=== PATIENT | female | born 1955 | race Caucasian/White ===

== ENCOUNTER 2016-10-30 13:00 | Outpatient (RCR) | payer OTHER ==
[2016-10-22 09:34] VITALS: BMI 28.3
--- NOTE | 2016-10-29 14:17 | RS.OPPTDN ---
Subjective Date of Note: 10/28/16 Visit #: 9 Date of Evaluation: 09/25/16 Payer Source: MEDICARE Treatment Diagnosis: Gait imbalance Current Subjective/complaints:: Patient says she is feeling much better regarding BP med change. She says she is ready to continue with strengthening. Pain Assessment - Pain Description Pain Location: lower back Interventions - Exercise/Activities/Manual Therapy Exercises/Activities: Continued with progressing general LE and trunk exercises : QS, SAQ 2 1/2#, ball squeezes, isometric hip flexion/abd, ham curls/DF, isometric trunk rotation, bridging (2x10),alternate LE lift with 2 1/2# each leg and 3# wand, Green tband for trunk rotation, all 2/10. SLR 2/10. Standing : shoulder shrugs, scap adduction x 10. 3# wand for bilateral shoulder flexion in sitting x 10. Scap retraction green tband x 10. Began treadmill x 5 mins @ 1.0-1.3 mph Total minutes of Exercise: 43 Manual Therapy: NA - Charges Total Direct Minutes: 43 Total Treatment Time: 43 Procedures billed for this date of service:: ex3 Assessment: Patient continues to progress well with increased weights, trunk stability, and treadmill marjorie. No LOB or unsteadiness observed today. Patient Education: Education of diagnosis, Body/Joint mechanics, Home Exercise Program, Home Safety, Activity Modification, Education of Plan of Care Patient demonstrates compliance with HEP?: Yes Short Term Goals Goal #1: Trunk strength 4+/5. Goal to be met by: 10/10/16 Progress towards Goal:: Progressing Goal #2: Bilateral hip strength generally 4/5. Goal to be met by: 10/10/16 Progress towards Goal:: Progressing Goal #3: Patient to demonstrate minimal posterior displace of COG on Balance System. Goal to be met by: 10/10/16 Progress towards Goal:: Progressing Goal #4: Patient to amb. with consistent foot clearance and no deviation from path. Goal to be met by: 10/10/16 Progress towards Goal:: Progressing Fpc Goals Goal #1: Score on Tinetti Assessment to 28/28. Goal to be met by: 11/05/16 Goal #2: Pt to amb. community distances with good safety and min. gait deviation. Goal to be met by: 11/05/16 Progress towards goal: Progressing Goal #3: Pt knows HEP and to continue to maintain functional level after discharge. Goal to be met by: 11/05/16 Goal #4: Patient to report no falls with home or community ambulation. Goal to be met by: 11/05/16 Plan PLAN OF CARE EXPIRES ON:: 11/05/16 ORDER # VISITS AND/OR THROUGH DATE: 11/05/16 PLAN: Progress Exercises
--- NOTE | 2016-11-04 15:52 | RS.OPPTDN ---
Subjective Date of Note: 10/30/16 Visit #: 10 Date of Evaluation: 09/25/16 Payer Source: MEDICARE Treatment Diagnosis: Gait imbalance Current Subjective/complaints:: Patient expressed she has progressed well with strength and ambulation. She has been performing HEP routinely and feels she is ready to perform more strengthening at home and possibly join a local gym. Pain Assessment - Pain Description Pain Location: none mentioned Interventions - Exercise/Activities/Manual Therapy Exercises/Activities: Continued with progressing general LE and trunk exercises : QS, SAQ 3#, ball squeezes, isometric hip flexion/abd, ham curls/DF, isometric trunk rotation, bridging (2x10),alternate LE lift with 2 1/2# each leg and 3# wand, Green tband for trunk rotation, all 2/10. SLR 2/10. Standing : shoulder shrugs, scap adduction x 10. 3# wand for bilateral shoulder flexion in sitting x 10. Scap retraction green tband x 10. Continued with treadmill x 5 mins @ 1.0-1.3 mph. Step ups and side stepping, marching and minisquats. Tinetti reassessment conducted. Progressed HeP and provided copies. Total minutes of Exercise: 40 Manual Therapy: NA - Charges Total Direct Minutes: 40 Total Treatment Time: 40 Procedures billed for this date of service:: ex3 Assessment: Patient shows improvement with Tinetti from to . She expresses satisfaction with PT results and commits to performing HEP daily and joining local gym to begin walking routine/stationary bike. She has marjorie all progressive exercises and standing activities while maintaining balance. Patient Education: Education of diagnosis, Body/Joint mechanics, Home Exercise Program, Home Safety, Activity Modification, Education of Plan of Care Patient demonstrates compliance with HEP?: Yes Short Term Goals Goal #1: Trunk strength 4+/5. Goal to be met by: 10/10/16 Progress towards Goal:: Met Goal #2: Bilateral hip strength generally 4/5. Goal to be met by: 10/10/16 Progress towards Goal:: Met Goal #3: Patient to demonstrate minimal posterior displace of COG on Balance System. Goal to be met by: 10/10/16 Progress towards Goal:: Progressing Goal #4: Patient to amb. with consistent foot clearance and no deviation from path. Goal to be met by: 10/10/16 Progress towards Goal:: Met Correction Goals Goal #1: Score on Tinetti Assessment to . Goal to be met by: 11/05/16 Progress towards goal: Progressing Comments: Goal #2: Pt to amb. community distances with good safety and min. gait deviation. Goal to be met by: 11/05/16 Progress towards goal: Met Goal #3: Pt knows HEP and to continue to maintain functional level after discharge. Goal to be met by: 11/05/16 Progress towards goal: Met Goal #4: Patient to report no falls with home or community ambulation. Goal to be met by: 11/05/16 Progress towards goal: Met Plan PLAN OF CARE EXPIRES ON:: 11/05/16 ORDER # VISITS AND/OR THROUGH DATE: 11/05/16 PLAN: Plan for Discharge
--- NOTE | 2016-11-13 11:04 | RS.OPPTDC ---
Date of Discharge: 10/30/16 Date of Evaluation: 09/25/16 Number of Visits: 10 Treatment Diagnosis: Gait imbalance Current Complaints/Gains: Patient reports being very please with her progress. States she feels she has returned to her normal ambulation speed and feels she has gained increased strength overall to the LE's. Pain Assessment - Pain Description Pain Location: none mentioned Functional Outcome Measure Tinetti: 22 (=21.4% impairment) - G Codes & Severity Modifier G Codes & Modifier: Mobility goal CH. Mobility D/C CJ Source of G Code score: Tinetti Assessment Gait - Gait Pattern Gait Comments: patient ambulates without an assistive device and demonstrates general increased stabilty with standing and ambulation. Interventions - Exercise/Activities/Manual Therapy Exercises/Activities: NA Manual Therapy: NA - Charges Total Direct Minutes: NA Total Treatment Time: NA Procedures billed for this date of service:: NA Assessment Assessment: Patient demonstrates improved safety and decresed risk for falls per Tinetti Asssessment, compared to initial evaluation. She reports feeling stronger and that her gait has returned to her normal pattern. She demonstrates independence with HEP and no further need for skilled therapy. Short Term Goals Goal #1: Trunk strength 4+/5. Goal to be met by: 10/10/16 Progress towards Goal:: Met Goal #2: Bilateral hip strength generally 4/5. Goal to be met by: 10/10/16 Progress towards Goal:: Met Goal #3: Patient to demonstrate minimal posterior displace of COG on Balance System. Goal to be met by: 10/10/16 Progress towards Goal:: Partially Met Goal #4: Patient to amb. with consistent foot clearance and no deviation from path. Goal to be met by: 10/10/16 Progress towards Goal:: Met Superintendent Overhead Distribution Goals Goal #1: Score on Tinetti Assessment to . Goal to be met by: 11/05/16 Progress towards goal: Not Met Comments: Progressed to . Goal #2: Pt to amb. community distances with good safety and min. gait deviation. Goal to be met by: 11/05/16 Progress towards goal: Met Goal #3: Pt knows HEP and to continue to maintain functional level after discharge. Goal to be met by: 11/05/16 Progress towards goal: Met Goal #4: Patient to report no falls with home or community ambulation. Goal to be met by: 11/05/16 Progress towards goal: Met Plan Reason for Discharge:: No Further Skilled Therapy Indicated
== END 2016-11-13 13:31 | disposition home or self-care (01) ==
PROVIDERS: ATTEND Family Medicine
DX: R26.81 Unsteadiness on feet (principal)

== ENCOUNTER 2016-12-10 16:24 | Outpatient (CLI) ==
[2016-10-22 09:34] VITALS: BMI 28.3
== END 2016-12-10 16:25 | disposition home or self-care (01) ==
LOC: LAB 16:24
PROVIDERS: ATTEND General Practice
DX: R25.2 Cramp and spasm (principal)
CPT/HCPCS: 36415; 83735

== ENCOUNTER 2016-12-24 16:59 | Outpatient (CLI) ==
[2016-10-22 09:34] VITALS: BMI 28.3
== END 2016-12-24 17:00 | disposition home or self-care (01) ==
LOC: LAB 16:59
PROVIDERS: ATTEND General Practice
DX: R19.7 Diarrhea, unspecified (principal); R14.0 Abdominal distension (gaseous)

== ENCOUNTER 2016-12-31 17:11 | Outpatient (CLI) ==
[2016-10-22 09:34] VITALS: BMI 28.3
[2017-01-05 13:11] LABS: IGG P18 AB Present (.); IGG P23 AB Present (.); IGG P28 AB Absent (.); IGG P30 AB Absent (.); IGG P39 AB Present (.); IGG P41 AB Present (.); IGG P45 AB Absent (.); IGG P58 AB Absent (.); IGG P66 AB Absent (.); IGG P93 AB Absent (.); IGM P39 AB Absent (.); IGM P41 AB Absent (.)
[2017-01-06 07:29] LABS: LYME IGG WB INTERP Negative (.); LYME IGM WB INTERP Negative (.)
== END 2016-12-31 17:12 | disposition home or self-care (01) ==
LOC: LAB 17:11
PROVIDERS: ATTEND General Practice
DX: M25.50 Pain in unspecified joint (principal); G62.9 Polyneuropathy, unspecified
CPT/HCPCS: 36415; 86617

== ENCOUNTER 2017-01-07 16:54 | Outpatient (CLI) | payer OTHER ==
[2016-10-22 09:34] VITALS: BMI 28.3
[2017-01-12 18:49] LABS: IGG P18 AB Absent (.); IGG P23 AB Absent (.); IGG P28 AB Absent (.); IGG P30 AB Absent (.); IGG P39 AB Absent (.); IGG P41 AB Present (.); IGG P45 AB Absent (.); IGG P58 AB Absent (.); IGG P66 AB Absent (.); IGG P93 AB Absent (.); IGM P39 AB Absent (.); IGM P41 AB Absent (.)
[2017-01-14 08:50] LABS: LYME IGG WB INTERP Negative (.); LYME IGM WB INTERP Negative (.)
== END 2017-01-07 16:55 | disposition home or self-care (01) ==
LOC: LAB 16:54
PROVIDERS: ATTEND General Practice
DX: M25.50 Pain in unspecified joint (principal); G62.9 Polyneuropathy, unspecified
CPT/HCPCS: 36415; 86617

== ENCOUNTER 2017-01-14 15:16 | Outpatient (CLI) ==
[2016-10-22 09:34] VITALS: BMI 28.3
[2017-01-20 02:15] LABS: IGG P18 AB Present (.); IGG P23 AB Present (.); IGG P28 AB Absent (.); IGG P30 AB Absent (.); IGG P39 AB Present (.); IGG P41 AB Present (.); IGG P45 AB Absent (.); IGG P58 AB Present (.); IGG P66 AB Present (.); IGG P93 AB Absent (.); IGM P39 AB Absent (.); IGM P41 AB Absent (.)
[2017-01-21 07:43] LABS: LYME IGG WB INTERP Positive (.); LYME IGM WB INTERP Negative (.)
== END 2017-01-14 15:17 | disposition home or self-care (01) ==
LOC: LAB 15:16
PROVIDERS: ATTEND General Practice
DX: G62.9 Polyneuropathy, unspecified (principal); M25.50 Pain in unspecified joint
CPT/HCPCS: 36415; 86617

== ENCOUNTER 2017-01-23 08:05 | Outpatient (CLI) ==
[2016-10-22 09:34] VITALS: BMI 28.3
[2017-01-23] MEDS ORDERED: ROCEPHIN 2 GM in SODIUM CHLORIDE 100 ML IV STA (08:23)
[2017-01-23 08:27] VITALS: BP 101/64; TEMP 97.6
== END 2017-01-23 08:06 | disposition home or self-care (01) ==
LOC: OPMED 08:05
PROVIDERS: ATTEND General Practice
DX: A69.20 Lyme disease, unspecified (principal)
CPT/HCPCS: 96365

== ENCOUNTER 2017-01-24 09:02 | Outpatient (CLI) ==
[2016-10-22 09:34] VITALS: BMI 28.3
[2017-01-24] MEDS ORDERED: ROCEPHIN 2 GM in SODIUM CHLORIDE 100 ML IV STA (09:23)
[2017-01-24 09:28] VITALS: BP 126/72
== END 2017-01-24 09:03 | disposition home or self-care (01) ==
LOC: OPMED 09:02
PROVIDERS: ATTEND General Practice
DX: A69.20 Lyme disease, unspecified (principal)
CPT/HCPCS: 96365

== ENCOUNTER 2017-01-25 08:41 | Outpatient (CLI) ==
[2016-10-22 09:34] VITALS: BMI 28.3
[2017-01-25] MEDS ORDERED: ROCEPHIN 2 GM in SODIUM CHLORIDE 100 ML IV STA (08:48)
[2017-01-25 08:50] VITALS: BP 124/74; TEMP 98.4
== END 2017-01-25 08:42 | disposition home or self-care (01) ==
LOC: OPMED 08:41
PROVIDERS: ATTEND General Practice
DX: A69.20 Lyme disease, unspecified (principal)
CPT/HCPCS: 96365

== ENCOUNTER 2017-01-26 08:09 | Outpatient (CLI) ==
[2016-10-22 09:34] VITALS: BMI 28.3
[2017-01-26 08:33] VITALS: BP 100/80; TEMP 98
[2017-01-26] MEDS ORDERED: ROCEPHIN 2 GM in SODIUM CHLORIDE 100 ML IV ONE (09:00)
[2017-01-26] MEDS ORDERED: ROCEPHIN 2 GM in SODIUM CHLORIDE 100 ML IV SCH (09:00)
== END 2017-01-26 08:10 | disposition home or self-care (01) ==
LOC: OPMED 08:09
PROVIDERS: ATTEND General Practice
DX: A69.20 Lyme disease, unspecified (principal)
CPT/HCPCS: 96365; 99211

== ENCOUNTER 2017-01-27 08:05 | Outpatient (CLI) ==
[2016-10-22 09:34] VITALS: BMI 28.3
[2017-01-27 08:17] VITALS: BP 119/81; TEMP 97.3
[2017-01-27] MEDS ORDERED: ROCEPHIN 2 GM in SODIUM CHLORIDE 100 ML IV ONE (09:00)
== END 2017-01-27 08:06 | disposition home or self-care (01) ==
LOC: OPMED 08:05
PROVIDERS: ATTEND General Practice
DX: A69.20 Lyme disease, unspecified (principal)
CPT/HCPCS: 96365; 99211

== ENCOUNTER 2017-01-28 08:06 | Outpatient (CLI) ==
[2016-10-22 09:34] VITALS: BMI 28.3
[2017-01-28 08:24] VITALS: BP 127/85; TEMP 99.1
[2017-01-28] MEDS ORDERED: ROCEPHIN 2 GM in SODIUM CHLORIDE 100 ML IV STA (08:34)
[2017-01-28] MEDS ORDERED: ROCEPHIN 2 GM in SODIUM CHLORIDE 100 ML IV SCH (09:00)
== END 2017-01-28 08:07 | disposition home or self-care (01) ==
LOC: OPMED 08:06
PROVIDERS: ATTEND General Practice
DX: A69.20 Lyme disease, unspecified (principal)
CPT/HCPCS: 96365; 99211

== ENCOUNTER 2017-01-29 08:33 | Outpatient (CLI) ==
[2016-10-22 09:34] VITALS: BMI 28.3
[2017-01-29 08:49] VITALS: BP 133/81; TEMP 99
[2017-01-29] MEDS ORDERED: ROCEPHIN 2 GM in SODIUM CHLORIDE 100 ML IV ONE (08:49)
[2017-01-29] MEDS ORDERED: ROCEPHIN 2 GM in SODIUM CHLORIDE 100 ML IV STA (08:50)
== END 2017-01-29 08:34 | disposition home or self-care (01) ==
LOC: OPMED 08:33
PROVIDERS: ATTEND General Practice
DX: A69.20 Lyme disease, unspecified (principal)
CPT/HCPCS: 96365

== ENCOUNTER 2017-01-30 08:10 | Outpatient (CLI) ==
[2016-10-22 09:34] VITALS: BMI 28.3
[2017-01-30] MEDS ORDERED: ROCEPHIN 2 GM in SODIUM CHLORIDE 100 ML IV STA (08:38)
== END 2017-01-30 08:11 | disposition home or self-care (01) ==
LOC: OPMED 08:10
PROVIDERS: ATTEND General Practice
DX: A69.20 Lyme disease, unspecified (principal)
CPT/HCPCS: 96365

== ENCOUNTER 2017-01-31 08:31 | Outpatient (CLI) ==
[2016-10-22 09:34] VITALS: BMI 28.3
[2017-01-31] MEDS ORDERED: ROCEPHIN 2 GM in SODIUM CHLORIDE 100 ML IV STA (08:48)
== END 2017-01-31 08:32 | disposition home or self-care (01) ==
LOC: OPMED 08:31
PROVIDERS: ATTEND General Practice
DX: A69.20 Lyme disease, unspecified (principal)
CPT/HCPCS: 96365

== ENCOUNTER 2017-02-01 08:56 | Outpatient (CLI) ==
[2016-10-22 09:34] VITALS: BMI 28.3
[2017-02-01] MEDS ORDERED: ROCEPHIN 2 GM in SODIUM CHLORIDE 100 ML IV STA (09:12)
[2017-02-01 09:33] VITALS: BP 155/86; TEMP 98.5
== END 2017-02-01 10:35 | disposition home or self-care (01) ==
LOC: OPMED 08:56
PROVIDERS: ATTEND General Practice
DX: A69.20 Lyme disease, unspecified (principal)
CPT/HCPCS: 96365

== ENCOUNTER 2017-02-02 08:05 | Outpatient (CLI) ==
[2016-10-22 09:34] VITALS: BMI 28.3
[2017-02-02] MEDS ORDERED: ROCEPHIN 2 GM in SODIUM CHLORIDE 100 ML IV STA (08:19)
[2017-02-02 08:54] VITALS: BP 138/86; TEMP 97.8
== END 2017-02-02 08:06 | disposition home or self-care (01) ==
LOC: NONPT 08:05 → OPMED 08:06
PROVIDERS: ATTEND General Practice
DX: A69.20 Lyme disease, unspecified (principal)
CPT/HCPCS: 96365

== ENCOUNTER 2017-02-03 08:09 | Outpatient (CLI) ==
[2016-10-22 09:34] VITALS: BMI 28.3
[2017-02-03] MEDS ORDERED: ROCEPHIN 2 GM in SODIUM CHLORIDE 100 ML IV STA (08:15)
[2017-02-03 08:20] VITALS: BP 132/74; TEMP 97.9
== END 2017-02-03 08:10 | disposition home or self-care (01) ==
LOC: OPMED 08:09
PROVIDERS: ATTEND General Practice
DX: A69.20 Lyme disease, unspecified (principal)
CPT/HCPCS: 96365

== ENCOUNTER 2017-02-04 08:07 | Outpatient (CLI) ==
[2016-10-22 09:34] VITALS: BMI 28.3
[2017-02-04] MEDS ORDERED: ROCEPHIN 2 GM in SODIUM CHLORIDE 100 ML IV STA (08:14)
[2017-02-04 15:06] LABS: BASOPHILS # (AUTO) 0.1 K/uL (0-0.2); BASOPHILS % (AUTO) 0.6 % (0.0-3.0); EOSINOPHILS # (AUTO) 0.1 K/ul (0.0-0.7); EOSINOPHILS % (AUTO) 1.3 % (0.0-7.0); HEMATOCRIT 42.4 % (37.0-47.0); IMMATURE GRANULOCYTE % (AUTO) 0.6 % (0.0-5.0); LYMPHOCYTES # (AUTO) 2.7 K/uL (0.60-3.4); LYMPHOCYTES % (AUTO) 34.5 (10.0-50.0); MEAN CORPUSCULAR HEMOGLOBIN 29.3 pg (27.0-31.0); MEAN CORPUSCULAR VOLUME 88.7 fl (81.0-99.0); MONOCYTES # (AUTO) 0.6 K/uL (0.4-2.0); MONOCYTES % (AUTO) 7.4 (0-10); NEUTROPHILS # (AUTO) 4.3 K/ul (2.0-6.9); NEUTROPHILS % (AUTO) 55.6; PLATELET COUNT 278 10^3/uL (140-440); RED BLOOD COUNT 4.78 10^6/ul (4.20-5.40); WHITE BLOOD COUNT 7.71 K/ul (4.6-10.2)
[2017-02-04 15:23] LABS: ALBUMIN 3.7 g/dL (3.4-5.0); ANION GAP 14.6; BILIRUBIN,TOTAL 0.27 mg/dL (0.00-1.20); BUN/CREATININE RATIO 11.11; CALCIUM 9.7 mg/dL (8.2-10.2); CREATININE 0.9 mg/dL (0.60-1.30); POTASSIUM 4.6 mmol/L (3.5-5.10); TOTAL PROTEIN 7.4 g/dL (5.8-8.1)
== END 2017-02-04 08:08 | disposition home or self-care (01) ==
LOC: OPMED 08:07 → LAB 08:08
PROVIDERS: ATTEND General Practice
DX: A69.20 Lyme disease, unspecified (principal)
CPT/HCPCS: 36415; 80053; 85025; 96365

== ENCOUNTER 2017-02-05 08:00 | Outpatient (CLI) ==
[2016-10-22 09:34] VITALS: BMI 28.3
[2017-02-05 08:14] VITALS: BP 95/65; TEMP 98.4
[2017-02-05] MEDS ORDERED: ROCEPHIN 2 GM in SODIUM CHLORIDE 100 ML IV STA (08:15)
== END 2017-02-05 08:01 | disposition home or self-care (01) ==
LOC: OPMED 08:00
PROVIDERS: ATTEND General Practice
DX: A69.20 Lyme disease, unspecified (principal)
CPT/HCPCS: 96365

== ENCOUNTER 2017-02-06 07:58 | Outpatient (CLI) | payer OTHER ==
[2016-10-22 09:34] VITALS: BMI 28.3
[2017-02-06 08:27] VITALS: BP 114/68; TEMP 97.8
[2017-02-06] MEDS ORDERED: ROCEPHIN 2 GM in SODIUM CHLORIDE 100 ML IV ONE (09:00)
== END 2017-02-06 07:59 | disposition home or self-care (01) ==
LOC: OPMED 07:58
PROVIDERS: ATTEND General Practice
DX: A69.20 Lyme disease, unspecified (principal)
CPT/HCPCS: 96365

== ENCOUNTER 2017-02-07 08:41 | Outpatient (CLI) | payer OTHER ==
[2016-10-22 09:34] VITALS: BMI 28.3
[2017-02-07 08:58] VITALS: BP 130/70; TEMP 98
[2017-02-07] MEDS ORDERED: ROCEPHIN 2 GM in SODIUM CHLORIDE 100 ML IV SCH (09:00)
== END 2017-02-07 08:42 | disposition home or self-care (01) ==
LOC: OPMED 08:41
PROVIDERS: ATTEND General Practice
DX: A69.20 Lyme disease, unspecified (principal)
CPT/HCPCS: 96365

== ENCOUNTER 2017-02-08 08:12 | Outpatient (CLI) | payer OTHER ==
[2016-10-22 09:34] VITALS: BMI 28.3
[2017-02-08] MEDS ORDERED: ROCEPHIN 2 GM in SODIUM CHLORIDE 100 ML IV STA (08:30)
[2017-02-08 08:56] VITALS: BP 97/71; TEMP 97.4
== END 2017-02-08 08:13 | disposition home or self-care (01) ==
LOC: OPMED 08:12
PROVIDERS: ATTEND General Practice
DX: A69.20 Lyme disease, unspecified (principal)
CPT/HCPCS: 96365; 96367

== ENCOUNTER 2017-02-09 08:06 | Outpatient (CLI) | payer OTHER ==
[2016-10-22 09:34] VITALS: BMI 28.3
[2017-02-09] MEDS ORDERED: ROCEPHIN 2 GM in SODIUM CHLORIDE 100 ML IV STA (08:16)
== END 2017-02-09 08:07 | disposition home or self-care (01) ==
LOC: OPMED 08:06
PROVIDERS: ATTEND General Practice
DX: A69.20 Lyme disease, unspecified (principal)
CPT/HCPCS: 96365

== ENCOUNTER 2017-02-10 08:06 | Outpatient (CLI) ==
[2016-10-22 09:34] VITALS: BMI 28.3
[2017-02-10 08:22] VITALS: BP 94/63; TEMP 97.2
[2017-02-10] MEDS ORDERED: ROCEPHIN 2 GM in SODIUM CHLORIDE 100 ML IV ONE (09:00)
== END 2017-02-10 09:40 | disposition home or self-care (01) ==
LOC: OPMED 08:06
PROVIDERS: ATTEND General Practice
DX: A69.20 Lyme disease, unspecified (principal)
CPT/HCPCS: 96365; 99211

== ENCOUNTER 2017-02-11 08:05 | Outpatient (CLI) ==
[2016-10-22 09:34] VITALS: BMI 28.3
[2017-02-11] MEDS ORDERED: ROCEPHIN 2 GM in SODIUM CHLORIDE 100 ML IV STA (08:10)
[2017-02-11 08:31] VITALS: BP 136/74; TEMP 98.1
== END 2017-02-11 08:06 | disposition home or self-care (01) ==
LOC: OPMED 08:05
PROVIDERS: ATTEND General Practice
DX: A69.20 Lyme disease, unspecified (principal)
CPT/HCPCS: 96365

== ENCOUNTER 2017-02-12 07:59 | Outpatient (CLI) | payer OTHER ==
[2016-10-22 09:34] VITALS: BMI 28.3
[2017-02-12] MEDS ORDERED: ROCEPHIN 2 GM in SODIUM CHLORIDE 100 ML IV STA (08:04)
== END 2017-02-12 08:00 | disposition home or self-care (01) ==
LOC: OPMED 07:59
PROVIDERS: ATTEND General Practice
DX: A69.20 Lyme disease, unspecified (principal)
CPT/HCPCS: 96365

== ENCOUNTER 2017-02-13 08:07 | Outpatient (CLI) ==
[2016-10-22 09:34] VITALS: BMI 28.3
[2017-02-13] MEDS ORDERED: ROCEPHIN 2 GM in SODIUM CHLORIDE 100 ML IV STA (08:13)
[2017-02-13 08:14] VITALS: BP 124/64; TEMP 98.1
== END 2017-02-13 08:08 | disposition home or self-care (01) ==
LOC: OPMED 08:07
PROVIDERS: ATTEND General Practice
DX: A69.20 Lyme disease, unspecified (principal)
CPT/HCPCS: 96365

== ENCOUNTER 2017-06-16 12:39 | Outpatient (CLI) | payer OTHER ==
[2016-10-22 09:34] VITALS: BMI 28.3
[2017-06-16 13:07] LABS: BASOPHILS # (AUTO) 0.1 K/uL (0-0.2); BASOPHILS % (AUTO) 0.7 % (0.0-3.0); EOSINOPHILS # (AUTO) 0.1 K/ul (0.0-0.7); EOSINOPHILS % (AUTO) 1.3 % (0.0-7.0); HEMATOCRIT 44.3 % (37.0-47.0); HEMOGLOBIN 15.2 g/dl (12.0-16.0); IMMATURE GRANULOCYTE % (AUTO) 0.8 % (0.0-5.0); LYMPHOCYTES # (AUTO) 2.6 K/uL (0.60-3.4); LYMPHOCYTES % (AUTO) 36.1 (10.0-50.0); MEAN CORPUSCULAR HEMOGLOBIN 29.3 pg (27.0-31.0); MEAN CORPUSCULAR HGB CONC 34.3 (31.8-35.4); MEAN CORPUSCULAR VOLUME 85.4 fl (81.0-99.0); MONOCYTES # (AUTO) 0.5 K/uL (0.4-2.0); MONOCYTES % (AUTO) 7.2 (0-10); NEUTROPHILS # (AUTO) 3.8 K/ul (2.0-6.9); NEUTROPHILS % (AUTO) 53.9; PLATELET COUNT 327 10^3/uL (140-440); RED BLOOD COUNT 5.19 10^6/ul (4.20-5.40)
[2017-06-16 13:16] LABS: BILIRUBIN,URINE Negative (NEGATIVE); KETONES,URINE Negative (NEGATIVE); LEUKOCYTE ESTERASE ,URINE Negative (NEGATIVE); NITRITE,URINE Negative (NEGATIVE); PROTEIN,URINE Negative (NEGATIVE); URINE, BLOOD Negative (NEGATIVE)
[2017-06-16 13:21] LABS: ALBUMIN 4.3 g/dL (3.4-5.0); ALBUMIN/GLOBULIN RATIO 1.26; ANION GAP 17.3; BILIRUBIN,TOTAL 0.82 mg/dL (0.00-1.20); CHOL/HDL RATIO 6.6 (4.5-5.5); CREATININE 0.9 mg/dL (0.60-1.30); POTASSIUM 4.3 mmol/L (3.5-5.10); TOTAL PROTEIN 7.7 g/dL (5.8-8.1)
[2017-06-16 13:22] LABS: ADD URINE MICROSCOPIC NO
== END 2017-06-16 12:40 | disposition home or self-care (01) ==
LOC: LAB 12:39
PROVIDERS: ATTEND General Practice
DX: E78.5 Hyperlipidemia, unspecified (principal); I10 Essential (primary) hypertension; A69.20 Lyme disease, unspecified; F31.9 Bipolar disorder, unspecified; Z72.0 Tobacco use; Z79.899 Other long term (current) drug therapy
CPT/HCPCS: 36415; 80053; 80061; 81001; 85025

== ENCOUNTER 2017-07-31 16:09 | Outpatient (CLI) ==
[2016-10-22 09:34] VITALS: BMI 28.3
[2017-07-31 16:20] LABS: BASOPHILS # (AUTO) 0.1 K/uL (0-0.2); BASOPHILS % (AUTO) 0.6 % (0.0-3.0); EOSINOPHILS % (AUTO) 0.3 % (0.0-7.0); HEMATOCRIT 43.3 % (37.0-47.0); IMMATURE GRANULOCYTE % (AUTO) 0.7 % (0.0-5.0); LYMPHOCYTES # (AUTO) 2.9 K/uL (0.60-3.4); MEAN CORPUSCULAR HEMOGLOBIN 29.6 pg (27.0-31.0); MEAN CORPUSCULAR HGB CONC 34.6 (31.8-35.4); MEAN CORPUSCULAR VOLUME 85.6 fl (81.0-99.0); MONOCYTES # (AUTO) 0.6 K/uL (0.4-2.0); NEUTROPHILS # (AUTO) 6.1 K/ul (2.0-6.9); NEUTROPHILS % (AUTO) 62.4; PLATELET COUNT 339 10^3/uL (140-440); RED BLOOD COUNT 5.06 10^6/ul (4.20-5.40); WHITE BLOOD COUNT 9.78 K/ul (4.6-10.2)
[2017-07-31 16:34] LABS: BILIRUBIN,URINE Negative (NEGATIVE); KETONES,URINE Negative (NEGATIVE); LEUKOCYTE ESTERASE ,URINE Negative (NEGATIVE); NITRITE,URINE Negative (NEGATIVE); PROTEIN,URINE Negative (NEGATIVE); URINE, BLOOD Negative (NEGATIVE)
[2017-07-31 16:37] LABS: ADD URINE MICROSCOPIC NO
[2017-07-31 16:53] LABS: ERYTHROCYTE SEDIMENTATION RATE 12 mm/hr (0-20); ESR INTERNAL QC INTERNAL QC VALID
[2017-07-31 17:08] LABS: ALBUMIN 3.9 g/dL (3.4-5.0); ANION GAP 13.9; BILIRUBIN,TOTAL 0.34 mg/dL (0.00-1.20); BUN/CREATININE RATIO 11.96; CALCIUM 10.1 mg/dL (8.2-10.2); CHOL/HDL RATIO 5.6 (4.5-5.5); CREATININE 1.17 mg/dL (0.60-1.30); POTASSIUM 3.9 mmol/L (3.5-5.10); TOTAL PROTEIN 7.8 g/dL (5.8-8.1)
== END 2017-07-31 16:10 | disposition home or self-care (01) ==
LOC: LAB 16:09
PROVIDERS: ATTEND General Practice
DX: R53.83 Other fatigue (principal); I10 Essential (primary) hypertension; E78.5 Hyperlipidemia, unspecified; A69.23 Arthritis due to Lyme disease; A69.20 Lyme disease, unspecified; Z79.899 Other long term (current) drug therapy; M25.50 Pain in unspecified joint
CPT/HCPCS: 36415; 80053; 80061; 81001; 84443; 85025; 85651; 86140

== ENCOUNTER 2017-08-03 06:44 | Outpatient (CLI) ==
[2016-10-22 09:34] VITALS: BMI 28.3
[2017-08-03] MEDS ORDERED: ATROPINE SULFATE PFS ONE (07:02)
[2017-08-03] MEDS ORDERED: DOBUTAMINE 250 ML IV ONE (07:02)
--- NOTE | 2017-08-04 11:53 | DOBSTECHO ---
Ordering Physician: DEEPTI BYNUM Date of Test: 08/03/17 Reason for Examination: FATIGUE, NEAR SYNCOPE, HYPERTENSION, LYME DISEASE Current Medications: POTASSIUM, LOPRESSOR, MAGNESIUM, LOSARTAN, HCTZ, VOLTAREN Height: 64" Weight: 165 LBS Target Heart Rate: 135 ST Segment Stage Time HR BPM BP mmhg Rhythm +/- Up Down Comments/Symptoms Control Sitting 85 118/78 SR NONE Dobutamine 250mg/D5W 5cmg/KG/mn 10cmg/KG/mn 3" 113 148/86 SR X NONE 15cmg/KG/mn 2" 126 146/70 SR X NONE 20cmg/KG/mn 1:24 131 126/66 SR X NONE 25cmg/KG/mn 30cmg/KG/mn 35cmg/KG/mn 40cmg/KG/mn Time: 4" HR B/P Time: HR B/P Time: HR B/P Recovery 108 126/80 Recovery Recovery Total Time: 6:24 Maximum Heart Rate Reached: 131 Interpretation: 97% OXYGEN SATURATION ON ROOM AIR WITH DOBUTAMINE INFUSION 1. NO EVIDENCE OF ISCHEMIA BY ST-T WAVE 2. NO CHEST PAIN OR DISCOMFORT 3. NORMAL LEFT VENTRICULAR CONTRACTILITY --RESTING AND DURING DOBUTAMINE INFUSION MTDD
--- NOTE | 2017-08-04 11:57 | ECHOSTRESS ---
Date of Exam: 08/03/17 Ordering Physician: DEEPTI BYNUM Reason for Echo: FATIGUE, HYPERTENSION, LYME DISEASE, DOBUTAMINE STRESS TEST-- NO ISCHEMIA M-Mode Normal Adult Results LV Dimensions Normal Adult Results AoV Opening excursions >1.6 LVEDD-base- 3.5-5.8 Ao root dimensions 2.0-3.7 LVESD-base- 3.1-4.6 L. Atrium dimensions 1.9-3.8 Post. Wall thickness 0.8-1.1 IV septum (thickness) 0.7-1.2 Post. Wall excursion 0.72-1.3 Septal motion Systolic motion R. Ventricular cavity 1.5-2.0 LVEF 60% Paradoxical septal wall motion 2-D: NORMAL LEFT VENTRICULAR CONTRACTILITY--RESTING AND DURING DOBUTAMINE INFUSION M-MODE: MV: AV: TV: PV: CHAMBER SIZE: WALL MOTION: NORMAL LEFT VENTRICULAR CONTRACTILITY--RESTING AND DURING DOBUTAMINE INFUSION PERICARDIUM: INTERPRETATION: 1. NORMAL LEFT VENTRICULAR CONTRACTILITY--RESTING AND DURING DOBUTAMINE INFUSION MTDD
== END 2017-08-03 06:45 | disposition home or self-care (01) ==
LOC: CAR 06:44
PROVIDERS: ATTEND General Practice
DX: R53.83 Other fatigue (principal)

== ENCOUNTER 2017-08-04 16:16 | Emergency (ER) | payer OTHER ==
[2017-08-04 16:17] VITALS: BMI 28.3
[2017-08-04 16:32] VITALS: BP 198/128; TEMP 98.4
[2017-08-04 17:18] LABS: BASOPHILS % (AUTO) 0.3 % (0.0-3.0); EOSINOPHILS % (AUTO) 0.4 % (0.0-7.0); HEMATOCRIT 40.4 % (37.0-47.0); HEMOGLOBIN 14.1 g/dl (12.0-16.0); IMMATURE GRANULOCYTE % (AUTO) 0.5 % (0.0-5.0); LYMPHOCYTES # (AUTO) 2.7 K/uL (0.60-3.4); LYMPHOCYTES % (AUTO) 29.8 (10.0-50.0); MEAN CORPUSCULAR HEMOGLOBIN 29.6 pg (27.0-31.0); MEAN CORPUSCULAR HGB CONC 34.9 (31.8-35.4); MEAN CORPUSCULAR VOLUME 84.7 fl (81.0-99.0); MONOCYTES # (AUTO) 0.6 K/uL (0.4-2.0); MONOCYTES % (AUTO) 6.3 (0-10); NEUTROPHILS # (AUTO) 5.8 K/ul (2.0-6.9); NEUTROPHILS % (AUTO) 62.7; PLATELET COUNT 318 10^3/uL (140-440); RED BLOOD COUNT 4.77 10^6/ul (4.20-5.40); WHITE BLOOD COUNT 9.19 K/ul (4.6-10.2)
[2017-08-04 17:21] LABS: BILIRUBIN,URINE Negative (NEGATIVE); KETONES,URINE Negative (NEGATIVE); LEUKOCYTE ESTERASE ,URINE Negative (NEGATIVE); NITRITE,URINE Negative (NEGATIVE); PH,URINE 5.5 (5-9); PROTEIN,URINE Negative (NEGATIVE); URINE, BLOOD Negative (NEGATIVE)
[2017-08-04 17:23] LABS: ADD URINE MICROSCOPIC NO
--- NOTE | 2017-08-04 17:26 | ED.PDOC ---
General ED Provider: Dr. MONICA DE LA VEGA Chief Complaint: Dizziness Stated Complaint: dizziness Time Seen by Physician: 16:20 (seen with jamel ) Information Source: Patient Exam Limitations: No limitations Primary Care Provider: DEEPTI OLIVERZita Nursing and Triage Documentation Reviewed and Agree: Yes Neurological Complaint Exam - Dizziness Complaint/Exam Last Known Well: last week Onset: Gradual Duration: 3 days Symptoms Are: Still present Timing: Constant Episodes Lasting: Days Initial Severity: Moderate Current Severity: Moderate Character: Reports: Lightheaded, Weak, Dizzy Aggravating: Reports: Headache, Position change Alleviating: Reports: None Associated Signs and Symptoms: Reports: Nausea. Denies: Vomiting, Diaphoresis, Tinnitus, Chest pain, Short of air, Palpitations, Unsteady gait, GI blood loss, Visual changes, Decreased oral intake, Change in medication, Change in diet, OTC meds, Loss of balance Related History: Similar episode Cardiac Risk Factors: Reports: Hypertension, Elevated lipids CVA Risk Factors: Reports: Hypertension Related Surgical History: Reports: None JVD Present: No Carotid Bruit Present: No Glascow Coma Scale (see protocol): 15 Nystagmus Present: Yes Gag Reflex Present: No Meningeal Signs Positive: No Focal Weakness: Present: None Focal Sensory Loss: Present: None Gait: Normal [id number]-[id number]: Normal Findings Romberg Test Positive: No Babinski Sign: Negative Right, Negative Left Differential Diagnoses: Anxiety, CAD, Dysrhythmia, Hypovolemia, Metabolic abnormalities Quality Indicators for Cardiac Chest Pain: EKG in 10min. Quality Indicators for AMI: EKG in 10min. Quality Indicator For Non-Traumatic Chest Pain/Syncope: EKG Performed Review of Systems - Review Of Systems Constitutional: Reports: No symptoms Eyes: Reports: No symptoms Ears, Nose, Mouth, Throat: Reports: No symptoms Respiratory: Reports: No symptoms Cardiac: Reports: No symptoms GI: Reports: No symptoms : Reports: No symptoms Musculoskeletal: Reports: No symptoms Skin: Reports: No symptoms Neurological: Reports: No symptoms Endocrine: Reports: No symptoms Hematologic/Lymphatic: Reports: No symptoms All Other Systems: Reviewed and Negative Past Medical History - Past Medical History Previously Healthy: Yes Endocrine: Reports: Dyslipidemia Cardiovascular: Reports: Hypertension Respiratory: Reports: None Hematological: Reports: None Gastrointestinal: Reports: None Genitourinary: Reports: None Neuro/Psych: Reports: Bipolar Disorder Musculoskeletal: Reports: None Cancer: Reports: None Last Menstrual Period: hysterectomy - Surgical History General Surgical History: Reports: None - Family History Family History: Reports: None - Social History Smoking Status: Current some day smoker, Light tobacco smoker Hx Substance Use: No Alcohol Screening: None Physical Exam - Physical Exam Appearance: Well-appearing, No pain distress, Well-nourished Eyes: CORBY, EOMI, Conjunctiva clear ENT: Ears normal, Nose normal, Oropharynx normal Respiratory: Airway patent, Breath sounds clear, Breath sounds equal, Respirations nonlabored Cardiovascular: RRR, Pulses normal, No rub, No murmur GI/: Soft, Nontender, No masses, Bowel sounds normal, No Organomegaly Musculoskeletal: Normal strength, ROM intact, No edema, No calf tenderness Skin: Warm, Dry, Normal color Neurological: Sensation intact, Motor intact, Reflexes intact, Cranial nerves intact, Alert, Oriented Psychiatric: Affect appropriate, Mood appropriate Critical Care Note - Critical Care Note Total Time (mins): 0 Course - Course Hematology/Chemistry: 08/04/17 17:15 08/04/17 17:15 Orders, Labs, Meds: Lab Review 08/04/17 08/04/17 08/04/17 17:15 17:15 17:15 WBC 9.19 RBC 4.77 Hgb 14.1 Hct 40.4 MCV 84.7 MCH 29.6 MCHC 34.9 RDW Coeff of Mary 12.7 Plt Count 318 Immature Gran % (Auto) 0.5 Neut % (Auto) 62.7 Lymph % (Auto) 29.8 Coal % (Auto) 6.3 Eos % (Auto) 0.4 Baso % (Auto) 0.3 Immature Gran # (Auto) 0.1 Neut # 5.8 Lymph # 2.7 Coal # 0.6 Eos # 0.0 Baso # 0.0 Sodium 139 Potassium 3.6 Chloride 104 Carbon Dioxide 24 Anion Gap 14.6 BUN 10 Creatinine 0.86 Estimated GFR (MDRD) 67.00 BUN/Creatinine Ratio 11.62 Glucose 100 Calcium 10.0 Total Bilirubin 0.37 AST 13 L ALT 10 L Alkaline Phosphatase 95 Total Creatine Kinase 93 Troponin I < 0.0100 Total Protein 7.3 Albumin 3.9 Globulin 3.4 Albumin/Globulin Ratio 1.15 TSH 3.578 Free T4 0.86 Urine Color Yellow Urine Clarity Clear Urine pH 5.5 Ur Specific [place] 1.010 Urine Protein Negative Urine Glucose (UA) Negative Urine Ketones Negative Urine Blood Negative Urine Nitrite Negative Urine Bilirubin Negative Urine Urobilinogen 0.2 Ur Leukocyte Esterase Negative Orders Category Date Time Status EKG-(ED ONLY) Stat CARDIO 08/04/17 16:56 Ordered CBC W/ AUTO DIFF Stat LAB 08/04/17 17:15 Completed COMPREHENSIVE METABOLIC PANEL Stat LAB 08/04/17 17:15 Completed CREATINE KINASE Stat LAB 08/04/17 17:15 Completed FREE T4 (FREE THYROXINE) Stat LAB 08/04/17 17:15 Completed RAPID FLU A/B Stat LAB 08/04/17 17:39 Received THYROID STIMULATING HORMONE Stat LAB 08/04/17 17:15 Completed TROPONIN I Stat LAB 08/04/17 17:15 Completed URINALYSIS C & S IF INDICATED Stat LAB 08/04/17 17:[address] HEAD W/O CONTRAST Stat RADS 08/04/17 16:56 Completed Vital Signs: Temp Pulse Resp BP Pulse Ox 08/04/17 16:18 98.4 F 129 H 22 198/128 H 97 Departure - Departure Time of Disposition: 18:09 Disposition: HOME SELF-CARE Discharge Problem: Dizziness, Nausea Instructions: Vertigo (ED), Lightheadedness (ED), Dizziness (ED) Condition: Good Pt referred to PMD for follow-up: Yes Additional Instructions: Please call your Family Physician as soon as possible to schedule a follow-up appointment. Allergies/Adverse Reactions: Allergies morphine Allergy (Severe, Verified 08/04/17 16:27) rash and swelling Home Medications: Ambulatory Orders Metoprolol Tartrate [Lopressor] 100 mg PO BID 10 Days tablet 10/22/16 Disposition Discussed With: Patient
--- NOTE | 2017-08-04 17:29 | CT ---
EXAM: CT head without contrast 08/04/2017. Sagittal and coronal reformatted images obtained HISTORY: Dizziness COMPARISON: 11/06/2015 FINDINGS: There is no evidence of intracranial hemorrhage. The midline is maintained. There is no h ydrocephalus. Generalized atrophy. Chronic small vessel ischemic changes. No cerebellar tonsillar ectopia. Evaluation of the calvarium shows no fracture. The mastoid air cells are normally pneumati zed. IMPRESSION: No acute intracranial abnormality.
[2017-08-04 17:56] LABS: ALBUMIN 3.9 g/dL (3.4-5.0); CHLORIDE 104 mmol/L (98-107); GLUCOSE 100 mg/dL (82-115); POTASSIUM 3.6 mmol/L (3.5-5.10); SODIUM 139 mmol/L (136-145); TOTAL PROTEIN 7.3 g/dL (5.8-8.1)
[2017-08-04 17:57] LABS: ALANINE AMINOTRANSFERASE 10 U/L (12-78); ALBUMIN/GLOBULIN RATIO 1.15; ALKALINE PHOSPHATASE 95 U/L (53-141); ANION GAP 14.6; ASPARTATE AMINO TRANSFERASE 13 U/L (15-37); BILIRUBIN,TOTAL 0.37 mg/dL (0.00-1.20); BLOOD UREA NITROGEN 10 mg/dL (7-18); BUN/CREATININE RATIO 11.62; CARBON DIOXIDE 24 mmol/L (23-31); CREATINE KINASE 93 U/L; CREATININE 0.86 mg/dL (0.60-1.30)
[2017-08-04 18:08] LABS: FLU INTERNAL QC INTERNAL QC VALID
[2017-08-04 18:09] LABS: RAPID FLU A NEGATIVE (NEGATIVE); RAPID FLU B NEGATIVE (NEGATIVE)
[2017-08-04] MEDS ORDERED: DUONEB NEB STA (18:20)
[2017-08-04] MEDS ORDERED: ROCEPHIN IM STA (18:23)
[2017-08-04] MEDS ORDERED: LIDOCAINE HCL 1% SDV SUBCUT STA (18:23)
[2017-08-05 17:26] LABS: MAGNESIUM 2.1 mg/dL (1.7-2.2)
== END 2017-08-04 18:26 | disposition home or self-care (01) ==
LOC: ED 16:16
DX: R42 Dizziness and giddiness (principal); R53.1 Weakness; R51 Headache; R11.0 Nausea; I10 Essential (primary) hypertension; E78.5 Hyperlipidemia, unspecified; F17.210 Nicotine dependence, cigarettes, uncomplicated
CPT/HCPCS: 36415; 80053; 81001; 82306; 82550; 83735; 84439; 84443; 84484; 85025; 87804; 93005; 93010; 99283

== ENCOUNTER 2017-08-05 14:52 | Outpatient (CLI) ==
[2017-08-04 16:17] VITALS: BMI 28.3
== END 2017-08-05 14:53 | disposition home or self-care (01) ==
LOC: LAB 14:52
PROVIDERS: ATTEND General Practice
DX: R25.2 Cramp and spasm (principal); E55.9 Vitamin D deficiency, unspecified

== ENCOUNTER 2017-12-14 14:25 | Outpatient (CLI) | END 2017-12-14 14:26 | disposition home or self-care (01) | LOC: LAB 14:25 | PROVIDERS: ATTEND Emergency Medicine | DX: E78.5 Hyperlipidemia, unspecified (principal); I10 Essential (primary) hypertension | CPT/HCPCS: 36415; 80053; 85025 ==

== ENCOUNTER 2017-12-21 10:58 | Outpatient (CLI) | END 2017-12-21 10:59 | disposition home or self-care (01) | LOC: RAD 10:58 | PROVIDERS: ATTEND Emergency Medicine | DX: Z12.31 Encounter for screening mammogram for malignant neoplasm of breast (principal) | CPT/HCPCS: 77067 ==

== ENCOUNTER 2017-12-24 15:23 | Outpatient (CLI) | END 2017-12-24 15:24 | disposition home or self-care (01) | LOC: FCC-LAB 15:23 | PROVIDERS: ATTEND General Practice | DX: E78.5 Hyperlipidemia, unspecified (principal); I10 Essential (primary) hypertension | CPT/HCPCS: 36415; 80061; 84443 ==

== ENCOUNTER 2018-01-22 10:00 | Outpatient (RCR) | END 2018-01-23 | LOC: NEWBEG 10:00 | PROVIDERS: ATTEND Psychiatry & Neurology Psychiatry | DX: F41.9 Anxiety disorder, unspecified (principal); F33.0 Major depressive disorder, recurrent, mild; F60.9 Personality disorder, unspecified | CPT/HCPCS: 90792; 90853; 99213 ==

== ENCOUNTER 2018-02-19 10:00 | Outpatient (RCR) | END 2018-02-22 23:59 | LOC: NEWBEG 10:00 | PROVIDERS: ATTEND Psychiatry & Neurology Psychiatry | DX: F41.9 Anxiety disorder, unspecified (principal); F33.0 Major depressive disorder, recurrent, mild; F60.9 Personality disorder, unspecified | CPT/HCPCS: 90832; 90853; 99213 ==

== ENCOUNTER 2018-03-24 10:00 | Outpatient (RCR) | END 2018-03-25 23:59 | LOC: NEWBEG 10:00 | PROVIDERS: ATTEND Psychiatry & Neurology Psychiatry | DX: F41.9 Anxiety disorder, unspecified (principal); F33.0 Major depressive disorder, recurrent, mild; F60.9 Personality disorder, unspecified | CPT/HCPCS: 90853; 99213 ==

== ENCOUNTER 2018-04-21 10:00 | Outpatient (RCR) | END 2018-04-24 23:59 | LOC: NEWBEG 10:00 | PROVIDERS: ATTEND Psychiatry & Neurology Psychiatry | DX: F41.9 Anxiety disorder, unspecified (principal); F33.0 Major depressive disorder, recurrent, mild; F60.9 Personality disorder, unspecified | CPT/HCPCS: 90853; 99213; 99214 ==

== ENCOUNTER 2018-05-17 10:56 | Outpatient (CLI) | END 2018-05-17 10:57 | disposition home or self-care (01) | LOC: RHC-LAB 10:56 | PROVIDERS: ATTEND Emergency Medicine | DX: E78.5 Hyperlipidemia, unspecified (principal); I10 Essential (primary) hypertension | CPT/HCPCS: 36415; 80053; 80061; 84443; 85025 ==

== ENCOUNTER 2018-05-24 10:00 | Outpatient (RCR) | END 2018-05-25 23:59 | LOC: NEWBEG 10:00 | PROVIDERS: ATTEND Psychiatry & Neurology Psychiatry | DX: F41.9 Anxiety disorder, unspecified (principal); F33.0 Major depressive disorder, recurrent, mild; F60.9 Personality disorder, unspecified | CPT/HCPCS: 90853; 99213 ==

== ENCOUNTER 2018-06-17 16:16 | Outpatient (CLI) | END 2018-06-17 16:17 | disposition home or self-care (01) | LOC: RHC-LAB 16:16 | PROVIDERS: ATTEND Emergency Medicine | DX: E03.9 Hypothyroidism, unspecified (principal) | CPT/HCPCS: 36415; 84443 ==

== ENCOUNTER 2018-06-23 10:00 | Outpatient (RCR) | END 2018-06-25 23:59 | LOC: NEWBEG 10:00 | PROVIDERS: ATTEND Psychiatry & Neurology Psychiatry | DX: F41.9 Anxiety disorder, unspecified (principal); F33.0 Major depressive disorder, recurrent, mild; F60.9 Personality disorder, unspecified | CPT/HCPCS: 90853; 99213; 99214 ==

== ENCOUNTER 2018-07-21 10:00 | Outpatient (RCR) | payer OTHER | END 2018-07-25 23:59 | LOC: NEWBEG 10:00 | PROVIDERS: ATTEND Psychiatry & Neurology Psychiatry | DX: F41.9 Anxiety disorder, unspecified (principal); F33.0 Major depressive disorder, recurrent, mild; F60.9 Personality disorder, unspecified | CPT/HCPCS: 90853; 99213 ==

== ENCOUNTER 2018-08-25 10:00 | Outpatient (RCR) | END 2018-08-25 23:59 | LOC: NEWBEG 10:00 | PROVIDERS: ATTEND Psychiatry & Neurology Psychiatry | DX: F41.9 Anxiety disorder, unspecified (principal); F33.0 Major depressive disorder, recurrent, mild; F60.9 Personality disorder, unspecified | CPT/HCPCS: 90853; 99213 ==

== ENCOUNTER 2018-10-25 10:00 | Outpatient (RCR) | END 2018-10-25 23:59 | LOC: NEWBEG 10:00 | PROVIDERS: ATTEND Psychiatry & Neurology Psychiatry | DX: F41.9 Anxiety disorder, unspecified (principal); F33.0 Major depressive disorder, recurrent, mild; F60.9 Personality disorder, unspecified | CPT/HCPCS: 90853 ==

== ENCOUNTER 2018-11-19 10:00 | Outpatient (RCR) | END 2018-11-25 23:59 | LOC: NEWBEG 10:00 | PROVIDERS: ATTEND Psychiatry & Neurology Psychiatry | DX: F41.9 Anxiety disorder, unspecified (principal); F33.0 Major depressive disorder, recurrent, mild; F60.9 Personality disorder, unspecified | CPT/HCPCS: 90853; 99213 ==

== ENCOUNTER 2018-12-17 10:00 | Outpatient (RCR) | END 2018-12-23 23:59 | LOC: NEWBEG 10:00 | PROVIDERS: ATTEND Psychiatry & Neurology Psychiatry | DX: F41.9 Anxiety disorder, unspecified (principal); F33.0 Major depressive disorder, recurrent, mild; F60.9 Personality disorder, unspecified | CPT/HCPCS: 90853; 99213 ==

== ENCOUNTER 2018-12-28 09:53 | Outpatient (CLI) | payer OTHER | END 2018-12-28 09:54 | disposition home or self-care (01) | LOC: RHC-LAB 09:53 → FCC-LAB 09:54 | PROVIDERS: ATTEND Family Medicine | DX: Z12.31 Encounter for screening mammogram for malignant neoplasm of breast (principal); E03.9 Hypothyroidism, unspecified; K58.2 Mixed irritable bowel syndrome; E78.5 Hyperlipidemia, unspecified; E55.9 Vitamin D deficiency, unspecified | CPT/HCPCS: 36415; 80053; 80061; 82306; 84439; 84443; 85025 ==

== ENCOUNTER 2019-01-03 13:19 | Outpatient (CLI) | payer OTHER ==
--- NOTE | 2019-01-05 09:03 | MAMMO ---
EXAM: Bilateral digital screening mammogram (2-D and 3-D) History: Screening Comparison: Bilateral mammogram 12/21/2017 Findings: MLO and CC views of bilateral breasts demonstrate predominately fatty replaced breast pare nchyma. There are no dominant masses, no suspicious microcalcifications and no architectural distort ions Impression: Stable negative mammogram. Recommend followup routine screening mammography in 1 year. BIRADS 1, negative
== END 2019-01-03 13:20 | disposition home or self-care (01) ==
LOC: RAD 13:19
PROVIDERS: ATTEND Family Medicine
DX: Z12.31 Encounter for screening mammogram for malignant neoplasm of breast (principal)

== ENCOUNTER 2019-01-13 08:56 | Outpatient (CLI) | END 2019-01-13 08:57 | disposition home or self-care (01) | LOC: RHC-LAB 08:56 → FCC-LAB 08:57 | PROVIDERS: ATTEND Family Medicine | DX: E83.52 Hypercalcemia (principal) | CPT/HCPCS: 36415; 82310; 83970 ==

== ENCOUNTER 2019-01-14 14:58 | Outpatient (CLI) | payer OTHER | END 2019-01-14 14:59 | disposition home or self-care (01) | LOC: RHC-LAB 14:58 → FCC-LAB 14:59 | PROVIDERS: ATTEND Family Medicine | DX: E83.52 Hypercalcemia (principal) | CPT/HCPCS: 36415; 82330 ==

== ENCOUNTER 2019-03-29 12:01 | Outpatient (CLI) | END 2019-03-29 12:02 | disposition home or self-care (01) | LOC: RHC-LAB 12:01 → FCC-LAB 12:02 | PROVIDERS: ATTEND Family Medicine | DX: G63 Polyneuropathy in diseases classified elsewhere (principal); M79.641 Pain in right hand; Z86.19 Personal history of other infectious and parasitic diseases | CPT/HCPCS: 36415; 82607; 86038; 86430 ==